=== PATIENT | female | born 1995 ===

== ENCOUNTER 2017-01-15 06:48 | Inpatient (IN) ==
[2017-01-15] MEDS ORDERED: ONDANSETRON 4 MG/2 ML VIAL IV PRN (07:28)
[2017-01-15] MEDS ORDERED: MEPERIDINE 50 MG/1 ML VIAL IV PRN (07:28)
[2017-01-15] MEDS ORDERED: BUTORPHANOL 2 MG/ML VIAL IV PRN (07:28)
[2017-01-15] MEDS ORDERED: OXYTOCIN/LR 20 UNIT/1,000 ML BAG IV SCH (07:30)
[2017-01-15] MEDS ORDERED: LACTATED RINGERS 1,000 ML IV SCH (07:30)
[2017-01-15 07:43] LABS: Basophils % 0.2 % (0.0-0.8); Eosinophils # 0.1 10*3/uL (0.0-0.87); Eosinophils % 1.1 % (0.00-10.9); Hematocrit 34.1 VOL% (35.7-47.0); Hemoglobin 11.6 GM/DL (12.0-16.0); Immature Granulocytes % 0.5 %; Immature Granulocytes Absolute 0.04 #; Lymphocytes # 2.3 10*3/uL (1.4-4.0); Lymphocytes % 28.5 % (21.3-54.2); Mean Corpuscular Hemoglobin 29 PG (27-34); Mean Corpuscular Volume 85.3 FL (87-102); Mean Platelet Volume 9.9 FL (9.6-12.0); Monocytes # 0.6 10*3/uL (0.11-0.8); Monocytes % 7.3 % (1.7-12.7); Neutrophils # 5.1 10*3/uL (1.4-7.4); Neutrophils % 62.4 % (38.7-73.9); Platelet Count 266 T/CUMM (130-400); Red Cell Distribution Width 12.5 % (9.3-17.3); White Blood Count 8.1 T/CUMM (4-12)
[2017-01-15 08:08] LABS: Albumin 2.5 G/DL (3.4-5.0); Bilirubin,Total 0.8 MG/DL (0.2-1.0); Calcium 8.5 MG/DL (8.5-10.1); Osmolality,Calculated 272.7 MOS/KG (273-304); Total Protein 6.7 G/DL (6.4-8.3); Uric Acid 3.9 MG/DL (2.6-6.0)
--- NOTE | 2017-01-15 08:31 | OB/GYN History & Physical ---
History of Present Illness Chief complaint: In for elective induction of labor due to term . History of present illness: Ms. Vazquez is a 21 year old female who presents to the labor department for elective induction due to term . The risk and benefits of been thoroughly discussed with this patient and significant other, plan of care has been discussed with Dr. Zaidi and all parties are in agreement with plan. Her MICHELLE is 01/22/2017 for an estimated gestational age of 39 weeks. The patient received her care through the [facility] and the [facility], she received routine care and her course was uneventful. She has had 2 previous vaginal deliveries and her largest infant weighed 7 pounds and 9 ounces she reported gestational diabetes with that . labs: She is O+, rubella is immune, RPR is nonreactive, hepatitis B negative, HIV negative, GBS culture negative. Review of systems is negative with exception of above. Home Medications Medication Instructions Recorded Confirmed Type No Known Home Medications [No 01/15/17 01/15/17 History Known Home Medications] Allergies Allergy/AdvReac Type Severity Reaction Status Date / Time No Known Allergies Allergy Verified 05/06/16 03:47 12 point system: reviewed and no additional remarkable complaints except as stated Medical,Surgical,& Family Hx - Medical History Medical History: noncontributory Reproductive: No history of: Ectopic , Complication - Surgical History Surgical History: noncontributory Reproductive Surgeries: Patient denies;: Section - Family History Family History: Reports;: Family Diabetes, Family Hypertension - Social History Smoking Status: Never smoker Frequency of Alcohol Use: None Type of Drug Use: None Marital Status: Single Lives With:: Significant Other Functional capacity: independent ambulation 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 Vitals: Vital Signs Temp Pulse Resp BP Pulse Ox 01/15/17 08:00 97.0 F L 93 H 18 127/71 99 General appearance: no acute distress - Antepartum / Post Antepartum Exam Cervix - Dilatation: 4 cm Effacement: 60% Station: -2 Rupture: Intact Presentation: Vertex Heart Rate: 140s Massena: Uterine contractions irregular Breast: bilateral: normal Abdomen obstetrics: Present: bowel sounds normal Vagina: Present: normal moisture Uterus exam: Present: enlarged Anus/Rectum: Present: normal perianal skin - Respiratory Respiratory exam: Present: clear to auscultation bilaterally - Cardiovascular Cardiovascular exam: Present: regular rate and rhythm - GI/Abdominal GI/Abdominal exam: Present: normal bowel sounds, soft - Extremities Exam Extremities exam: Present: normal inspection - Back Exam Back exam: Present: normal inspection - Neurological Exam Neurological exam: Present: alert, oriented X3 - Psychiatric Psychiatric exam: Present: normal affect, normal mood - Skin Skin exam: Present: normal color, warm Assessment and Plan (1) Term Status: Acute Assessment and plan: Admit IV fluids IV Pitocin per protocol Artificial rupture membranes when appropriate Internal monitors if indicated Epidural anesthesia if desired Anticipate Current Visit: Yes Results - Labs CBC & BMP: 01/15/17 07:37 01/15/17 07:37
[2017-01-15] MEDS ORDERED: LACTATED RINGERS 1,000 ML IV ONE (11:09)
[2017-01-15] MEDS ORDERED: CITRIC ACID/SODIUM CITRATE 30 ML UDCUP PO ONE (11:09)
[2017-01-15] MEDS ORDERED: FAMOTIDINE 20 MG/2 ML VIAL IV ONE (11:09)
[2017-01-15] MEDS ORDERED: diphenhydrAMINE 50 MG/1 ML VIAL IV PRN ×2 (11:10)
[2017-01-15] MEDS ORDERED: hydrOXYzine HCL 50 MG/1 ML VIAL IM PRN (11:10)
[2017-01-15] MEDS ORDERED: fentaNYL 2 MCG/ROPIV 0.2% EPID 150 ML EPIDURAL SCH (11:10)
[2017-01-15] MEDS ORDERED: LACTATED RINGERS 250 ML IV PRN (11:10)
[2017-01-15] MEDS ORDERED: ePHEDrine 50 MG/ML AMP IV PRN (11:10)
[2017-01-15] MEDS ORDERED: PROMETHAZINE 25 MG/1 ML VIAL IM ONE (11:10)
--- NOTE | 2017-01-15 13:40 | Event Note ---
HPI: Ms. Vazquez is a 21-year-old female who presented for elective induction of labor due to term . The risk and benefits were thoroughly discussed with this patient and significant other, plan of care was discussed with Dr. Zaidi and all parties were in agreement plan. Stage I: The patient was admitted and received IV fluids and IV Pitocin per protocol. She progressed in labor with a CAT 1 tracing. When she was 45 cm dilated she had artificial rupture membranes with clear fluid noted. The patient also received an epidural for pain control. She progressed over a normal labor curve without any complications. Her course was uneventful. Stage II: The patient was complete and complained of pressure and desire to push. She pushed 3 times over 1 contraction. The infant's head was then delivered, the mouth and nose were suctioned on the perineum. The remainder the infant was delivered at 1248 a viable male infant was noted. Apgars were 8 at 1 minute and 8 at 5 minutes. A cord pH was obtained and sent to the lab. The infant was placed briefly on the mom's abdomen for skin to skin bonding. However O2 sat was not adequate; therefore, the infant was taken to the nursery for further evaluation. Stage III: A spontaneous delivery of a Olmedo placenta with a three-vessel cord noted. The placenta was further examined appeared to be grossly intact. The vagina cervix was inspected with no tears or lacerations noted. Estimated blood loss was approximately 150 cc. At the time of dictation mother and baby are both in stable condition.
[2017-01-15] MEDS ORDERED: ACETAMINOPHEN/CODEINE 300-30 MG TABLET PO PRN (13:42)
[2017-01-15] MEDS ORDERED: ACETAMINOPHEN 325 MG TABLET PO PRN (15:18)
[2017-01-15] MEDS ORDERED: LANOLIN 50% CREAM 0.3 OZ TUBE TOP PRN (15:18)
[2017-01-15] MEDS ORDERED: RHO(D) IMMUNE GLOBULIN 300 MCG SYRINGE IM ONE (15:18)
[2017-01-15] MEDS ORDERED: MEASLES/MUMPS/RUBELLA VACCINE 0.5 ML VIAL SUBCUT ONE (15:18)
[2017-01-15] MEDS ORDERED: HYDROCORTISONE 2.5% RECTAL CREAM 30 GM TUBE TOP PRN (15:18)
[2017-01-15] MEDS ORDERED: WITCH HAZEL PADS 100/JAR TOP PRN (15:18)
[2017-01-15] MEDS ORDERED: BISACODYL 10 MG SUPP RECTAL PRN (15:18)
[2017-01-15] MEDS ORDERED: oxyCODONE/ACETAMINOPHEN 5-325 MG TABLET PO PRN (15:18)
[2017-01-15] MEDS ORDERED: DIPH/TET/ACEL PERT BOOSTER VACCINE 0.5 ML VIAL IM ONE (15:18)
[2017-01-15] MEDS ORDERED: BENZOCAINE 20%/MENTHOL 0.5% SPRAY 56 GM CAN TOP PRN (15:18)
[2017-01-15] MEDS ORDERED: OXYTOCIN/LR 20 UNIT/1,000 ML BAG IV ONE (15:24)
[2017-01-15] MEDS: DOCUSATE SODIUM 100 MG CAPSULE PO SCH (20:34)
[2017-01-15] MEDS: IBUPROFEN 800 MG TABLET PO PRN (23:33)
[2017-01-15] MEDS: oxyCODONE/ACETAMINOPHEN 5-325 MG TABLET PO PRN (23:34)
[2017-01-16 06:36] LABS: Basophils % 0.2 % (0.0-0.8); Eosinophils # 0.1 10*3/uL (0.0-0.87); Eosinophils % 0.9 % (0.00-10.9); Hematocrit 30.1 VOL% (35.7-47.0); Immature Granulocytes % 0.6 %; Immature Granulocytes Absolute 0.06 #; Lymphocytes # 2.5 10*3/uL (1.4-4.0); Lymphocytes % 25.4 % (21.3-54.2); Mean Corpuscular HGB Conc 33.2 GM/DL (32-36); Mean Corpuscular Hemoglobin 29 PG (27-34); Monocytes # 0.7 10*3/uL (0.11-0.8); Monocytes % 7.3 % (1.7-12.7); Neutrophils # 6.3 10*3/uL (1.4-7.4); Neutrophils % 65.6 % (38.7-73.9); Platelet Count 215 T/CUMM (130-400); Red Cell Distribution Width 12.6 % (9.3-17.3); White Blood Count 9.7 T/CUMM (4-12)
--- NOTE | 2017-01-16 08:54 | OB/GYN Progress Note ---
Assessment and Plan (1) Term Status: Acute Assessment and plan: Admit IV fluids IV Pitocin per protocol Artificial rupture membranes when appropriate Internal monitors if indicated Epidural anesthesia if desired Anticipate Current Visit: Yes (2) Vaginal delivery Status: Acute Assessment and plan: Initiate routine orders. 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 - Constitutional Vitals: Vital Signs Temp Pulse Resp BP Pulse Ox 01/16/17 07:13 98.2 F 70 19 94/58 97 01/16/17 06:56 18 01/16/17 06:00 18 01/16/17 04:00 97.1 F L 79 20 109/77 98 01/16/17 03:00 18 01/16/17 02:00 18 01/16/17 01:00 18 01/16/17 00:00 97.6 F 72 20 122/76 98 01/15/17 20:00 97.1 F L 72 18 116/69 99 01/15/17 18:30 68 18 120/64 99 01/15/17 17:30 84 20 120/69 98 01/15/17 16:30 69 20 122/73 98 01/15/17 16:00 83 20 113/62 98 01/15/17 15:30 97.9 F 76 20 108/60 100 01/15/17 12:00 98.2 F 102 H 18 141/71 100 General appearance: no acute distress - Antepartum / Post Post Exam Breast: bilateral: normal Abdomen obstetrics: Present: bowel sounds normal Vulva: bilateral: normal Vagina: Present: normal moisture, discharge (Light lochia rubra) Uterus exam: Present: enlarged (Fundus firm midline) Anus/Rectum: Present: normal perianal skin - Head Head exam: Present: normal inspection - Respiratory Respiratory exam: Present: clear to auscultation bilaterally - Cardiovascular Cardiovascular exam: Present: regular rate and rhythm - GI/Abdominal GI/Abdominal exam: Present: normal bowel sounds, soft - Extremities Exam Extremities exam: Present: normal inspection - Back Exam Back exam: Present: normal inspection - Neurological Exam Neurological exam: Present: alert, oriented X3 - Psychiatric Psychiatric exam: Present: normal affect, normal mood - Skin Skin exam: Present: normal color, warm Results - Labs CBC & BMP: 01/16/17 06:19 01/15/17 07:37
[2017-01-16] MEDS: IBUPROFEN 800 MG TABLET PO PRN ×3 (09:26→21:33)
[2017-01-16] MEDS: DOCUSATE SODIUM 100 MG CAPSULE PO SCH ×2 (09:26→21:29)
[2017-01-16] MEDS: FERROUS SULFATE 325 MG TABLET PO SCH ×2 (09:26→21:29)
--- NOTE | 2017-01-16 09:47 | Anesthesia Post-Op ---
Anesthesia Post OP - Post Ansesthetic Evaluation Patient seen in post op: Yes Resp: within normal limits CV: within normal limits Mental: within normal limits Temp: within normal limits [id number]: within normal limits Nausea and Vomiting: within normal limits Pain: within normal limits
[2017-01-17] MEDS: oxyCODONE/ACETAMINOPHEN 5-325 MG TABLET PO PRN (01:32)
[2017-01-17 07:12] VITALS: BP 103/71
--- NOTE | 2017-01-17 09:15 | Discharge Summary ---
Hospital Course - Hospital Course Hospital Course: Ms. Vazquez is a 21-year-old female who presented for elective induction of labor due to term she subsequently delivered of viable . The infant had a spontaneous pneumothorax and was transferred to the NICU and remains there in stable condition with a possible discharge for Saturday. However the patient desires to go home today. Her fundus is firm and midline. Her bleeding is minimal with no odor. She is voiding without difficulty. Her vital signs and lab values are stable. She will be discharged home with prescriptions for pain and a follow-up appointment in our office. Diagnosis - Discharge Diagnosis (1) Term Status: Acute (2) Vaginal delivery Status: Acute Specialty Discharge - Follow Up or Referrals Follow up with: Chuck Zaidi MD [Physician] - 02/28/17 9:30 am (Follow-up in 6 week) Discharge Plan - Discharge Data Disposition: Disch To Home/Self Care Condition at Discharge: Stable Discharge Diet: advance to your usual diet, regular diet Activity: resume usual activities as tolerated Hygiene: no restrictions Weight Bearing at Discharge: weight bear as tolerated Driving: no restrictions Contact your physician if you experience:: fever over 101, pain uncontrolled by pain medications - Discharge Medications New Ferrous Sulfate Tab [Feosol Original Tab] 325 mg PO BID #60 tablet Acetamin/Codeine 300-30 Tab [Tylenol/Codeine #3] 2 tablet PO Q4H PRN #30 tablet PRN Reason: Pain Mild (1-3) Ibuprofen Tab [Motrin Tab] 800 mg PO Q6H PRN #30 tablet PRN Reason: Pain Moderate (4-7) - Follow Up or Referral Follow Up: Chuck Zaidi MD [Physician] - 02/28/17 9:30 am (Follow-up in 6 week) - Forms/Instructions Instructions: Vaginal Delivery (DC), Bleeding (DC) Exam - Constitutional Vitals: Period Temp Pulse Resp BP Sys/Katz Pulse Ox Last 24 Hr 97.2 F-97.8 F 65-78 18-20 96-126/50-73 97-99 General appearance: no acute distress - Respiratory Respiratory exam: Present: clear to auscultation bilaterally - Cardiovascular Cardiovascular exam: Present: regular rate and rhythm - GI/Abdominal GI/Abdominal exam: Present: normal bowel sounds, soft - Extremities Exam Extremities exam: Present: normal inspection - Neurological Exam Neurological exam: Present: alert, oriented X3 - Psychiatric Psychiatric exam: Present: normal affect, normal mood - Skin Skin exam: Present: normal color, warm DS: Provider Date of admission: 01/15/17 07:29 Primary care physician: Avni Cruz MD Attending physician on admission: Chuck Zaidi MD Consults: 01/15/17 08:12 Consult to Dietitian [CONS] Routine Reason for Dietitian: Dietary Consult 01/15/17 15:18 Consult to Vest Presser [CONS] Routine Consult Vest Presser: Breast Feeding Discharging clinician: Bernadine Lamb CNM Expected date of discharge: 01/17/17
[2017-01-17] MEDS: DOCUSATE SODIUM 100 MG CAPSULE PO SCH (09:43)
[2017-01-17] MEDS: FERROUS SULFATE 325 MG TABLET PO SCH (09:43)
== END 2017-01-17 12:10 | disposition home or self-care (01) | DRG 560 ==
LOC: N.LDOUT 06:48 → N.LD 06:55 → N.OB 15:17
PROVIDERS: ADMIT Obstetrics & Gynecology; ATTEND Obstetrics & Gynecology